=== PATIENT | female | born 1950 ===

== ENCOUNTER 2018-06-29 17:46 | Inpatient (IN) | payer MEDICARE, BC, OTHER | END 2018-07-02 18:14 | disposition home or self-care (01) | LOC: ED 17:46 → ERH 19:46 → 3RNO 06-30 15:27 → 2RNO 06-30 15:34 → 3RNO 06-30 17:14 ==

== ENCOUNTER 2018-07-08 20:29 | Outpatient (CLI) | payer MEDICARE | END 2018-07-08 20:30 | disposition home or self-care (01) | LOC: PET-BROA 20:29 ==